=== PATIENT | female | born 1995 | race African-American/Black ===

== ENCOUNTER 2017-01-14 14:47 | Emergency (ER) | payer OTHER ==
[~2017-01-14] VITALS: Ht 165.1 cm; Wt 50.0 kg
[2017-01-14 15:52] VITALS: BP 105/60
== END 2017-01-14 16:00 | disposition home or self-care (01) ==
LOC: EMS 14:48
DX: S39.012A Strain of muscle, fascia and tendon of lower back, initial encounter (principal); V49.88XA Car occupant (driver) (passenger) injured in other specified transport accidents, initial encounter; Y93.89 Activity, other specified; Y92.89 Other specified places as the place of occurrence of the external cause; Y99.8 Other external cause status
CPT/HCPCS: 99283